=== PATIENT | male | born 1990 | race Caucasian/White ===

== ENCOUNTER 2018-01-24 18:25 | Observation (INO) | payer OTHER ==
--- NOTE | 2018-01-24 18:36 | EDPHY ---
H & P Smoking Status: Never smoked Time Seen by Provider: 01/24/18 18:34 HPI/ROS: CHIEF COMPLAINT: Right ankle injury HISTORY OF PRESENT ILLNESS: 27-year-old male presents to the emergency department by ambulance with right ankle injury. 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 He has an open wound that they were able to control the bleeding with firm direct pressure. The incident happened just prior to arrival. He had a protein shake 45 min ago. He denies hitting his head. Denies headache. Denies neck or back pain. Denies chest pain or difficulty breathing. Denies abdominal pain. REVIEW OF SYSTEMS: Constitutional: No fever, no chills. Eyes: No double or blurry vision. ENT: No sore throat. Respiratory: No cough, no shortness of breath. Cardiac: No chest pain. Gastrointestinal: No abdominal pain, vomiting or diarrhea. Genitourinary: No dysuria. Musculoskeletal: No neck or back pain. Skin: No rashes. Neurological: No headache. (Clara Rodriguez) Past Medical/Surgical History: History of pelvis fracture. 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 Eyes: Pupils equal and round. Extraocular motions are all intact. ENT: Mouth: Mucous membranes moist. Respiratory: No wheezing, rhonchi, or rales, lungs are clear to auscultation. Cardiovascular: Regular rate and rhythm. Gastrointestinal: Abdomen is soft and nontender, no masses, no rebound or guarding, bowel sounds normal. Neurological: Alert and oriented x 3, cranial nerves II through XII grossly intact Skin: Warm and dry, no rashes. Musculoskeletal: Nontender to palpate along the cervical, thoracic or lumbar spine. Neck is supple. Extremities: Examination the right ankle reveals puncture wound noted just distal to the lateral malleolus. There is very slow active bleeding noted. He has normal sensation to light touch with normal 2 point discrimination. Strong dorsalis pedis pulse on the dorsal aspect of his right foot. Limited range of motion of the right ankle secondary to pain. Nontender to palpate his right calf or right knee. Psychiatric: Patient is oriented X 3, there is no agitation. (Clara Rodriguez) Constitutional: Initial Vital Signs Temperature (C) 37.7 C 01/24/18 18:32 Heart Rate 74 01/24/18 18:32 Respiratory Rate 16 01/24/18 18:32 Blood Pressure 124/75 H 01/24/18 18:32 O2 Sat (%) 100 01/24/18 18:32 O2 Delivery Mode Room Air Allergies/Adverse Reactions: No Known Allergies Allergy (Unverified 07/25/10 13:58) Home Medications: Medication Instructions Recorded NO HOME MEDS 07/25/10 oxyCODONE/APAP [Percocet 1 - 2 tab PO Q4-6PRN PRN #20 tab 07/25/10 5325] Medical Decision Making - Diagnostics Imaging: Discussed imaging studies w/ call center coordinator Radiologist, I viewed and interpreted images myself - Diagnostics Imaging Results: Imaging Impressions Ankle X-Ray 01/24/18 18:39 Impression: 1. Widening of the lateral ankle mortise suspicious for ligamentous injury. 2. Air in the soft tissues and joint. Findings discussed with CLARA RODRIGUEZ 01/24/2018 at 18:56. Extremity CT 01/24/18 19:29 Impression: No fracture. Intra-articular and extensive subcutaneous gas. Results called and discussed with Clara Rodriguez, at 01/24/2018 19:52 ED Course/Re-evaluation: 27-year-old male presents to the emergency department with right ankle injury. On examination the patient has puncture wound noted to the lateral aspect of the right ankle with some slow active bleeding noted. No gross deformity noted to the ankle. X-rays reveal air in the joint, however no evidence of obvious fracture. The patient was given 1 g of Ancef IV in the emergency department. He was kept NPO. He had a protein shake 45 min prior to arrival. I initially spoke with Dr. Christopher Faust, on-call orthopedic surgeon, who recommended cleaning the area out, antibiotics, Medrano boot, and he would see him in follow-up. I spoke with Dr. Ro, secondary supervising physician, who also evaluated the patient and spoke with Dr. Christopher Faust about management of this patient. CT imaging was ordered which reveal no fractures. The patient will be taken to the operating room for washout. (RosClara tovar) Differential Diagnosis: Including but not limited to open fracture, ankle sprain, retained foreign body , dislocation, contusion (Clara Rodriguez) Other Provider: Independent physician evaluation: I evaluated and participated in the management of the patient. I also evaluated the patient independently. My co-signature indicates that I have reviewed this chart and I agree with the findings and plan of care as documented. My personal H&P findings include: The patient presents with complaints of right ankle pain following an inversion injury. The patient is noted to have a 3 cm laceration below his lateral malleolus. The patient is noted to have air in his ankle joint. Both x-ray and CT scan demonstrate no evidence of an obvious fracture. The patient had an IV established. He received a 1 gm of Ancef. He presents to the emergency department with a traumatic arthrotomy. I consulted with Dr. Faust from Orthopedic surgery who will take the patient to the operating room for a washout. (Jose Antonio Ro) - Data Points Medications Given: Discontinued Medications Bacitracin (Bacitracin Syringe) Confirm Administered Dose 50,000 units IRR .STK- MED ONE Stop: 01/24/18 21:57 Last Admin: 01/24/18 22:54 Dose: 50,000 units Bupivacaine HCl (Sensorcaine 0.5% Vial) Confirm Administered Dose 30 ml .ROUTE .STK-MED ONE Stop: 01/24/18 22:32 Last Admin: 01/24/18 22:54 Dose: 30 ml Hydromorphone HCl (Dilaudid) 1 mg IVP EDNOW ONE Stop: 01/24/18 19:46 Last Admin: 01/24/18 19:49 Dose: 1 mg Cefazolin Sodium/Dextrose (Ancef 1 Gm (Premix)) 50 mls @ 200 mls/hr IV EDNOW ONE PRN Reason: Protocol Stop: 01/24/18 18:47 Last Admin: 01/24/18 18:44 Dose: 50 mls Sodium Chloride (Ns) 1,000 mls @ 0 mls/hr IV ONCE ONE PRN Reason: Wide Open Stop: 01/24/18 18:42 Last Admin: 01/24/18 18:43 Dose: 1,000 mls Cefazolin Sodium/Dextrose (Ancef 1 Gm (Premix)) 50 mls @ 200 mls/hr IV ONCALL ONE PRN Reason: Protocol Stop: 01/24/18 21:51 Last Admin: 01/24/18 22:21 Dose: 50 mls Midazolam HCl (Versed) 2 mg IVP ONCALL ONE Stop: 01/24/18 22:02 Last Admin: 01/24/18 22:13 Dose: 2 mg Polymyxin B Sulfate (Polymyxin B Syringe) Confirm Administered Dose 500,000 unit IRR .STK-MED ONE Stop: 01/24/18 21:57 Last Admin: 01/24/18 22:53 Dose: 500,000 unit Departure - Departure Disposition: To OP Cath/Surgery Clinical Impression: Traumatic arthrotomy Open traumatic subluxation of ankle joint Qualifiers: Encounter type: initial encounter Laterality: right Qualified Code(s): S93.01XA - Subluxation of right ankle joint, initial encounter Condition: Fair
[2018-01-24] MEDS ORDERED: NS 1,000 ML IV ONE ×2 (18:41→21:25)
[2018-01-24] MEDS ORDERED: HYDROmorphONE/DILAUDID 2 MG/ML INJ IVP ONE (19:45)
[2018-01-24] MEDS ORDERED: HYDROmorphONE/DILAUDID 2 MG/ML INJ ONE (19:47)
--- NOTE | 2018-01-24 21:48 | GHP ---
[f rep st] PREOP HISTORY AND PHYSICAL DATE OF ADMISSION: 01/24/2018 REASON FOR CONSULTATION: Open ankle dislocation right. 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 Rubia hernandez was brought to the emergency department. X-rays and CT scan were obtained which did not show any a cute fracture. However there was air in the joint itself and he was given Ancef in the emergency dep artment and decision made to bring him up urgently to the operating room for formal open arthrotomy a nd I and D of the joint. PRIOR MEDICAL HISTORY: None. PRIOR SURGICAL HISTORY: None. MEDICATIONS: None. ALLERGIES: None. SOCIAL HISTORY: He [place] here [place] town. 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 He does not smoke. Does not drink alcohol. REVIEW OF SYSTEMS: No shortness of breath. No chest pain. Other than ankle pain, review of systems is normal. PHYSICAL EXAMINATION: VITAL SIGNS: In the emergency department blood pressure is 156/87, heart rate 89, respiratory rate is 16 on room air. His oxygen saturation is 98%. He weighs 83 kg. GENERAL: Alert and oriented x3. HEENT: Normocephalic, atraumatic. Extraocular muscles intact. NECK: Suppl e. There is no lymphadenopathy. No JVD. CHEST: Clear to auscultation. CARDIOVASCULAR: Regular r ate and rhythm. ABDOMEN: Soft, nontender, nondistended. EXTREMITIES: Focused on the right ankle rubia hernandez has a laceration over the lateral side of the joint with active slow ooze. No obvious contamination in the wound. He has 2+ dorsalis pedis and posterior tibial pulses. Calf is soft. He is moving hi s toes well. Sensation to light touch. Intact on the dorsal plantar aspect of his foot. IMAGING: Both plain x-rays and CT scan with 3D reconstructions are reviewed. I do not appreciate an y acute fractures. There is subcutaneous as well as air in the joint. ASSESSMENT: Open ankle dislocation right. PLAN: I want to or proceed with an urgent arthrotomy, irrigation debridement of his right ankle. Ri sks and benefits were discussed including potential septic arthritis down the road or residual infect ion. Most likely has a ligamentous injury as well that will need to be assessed at a later date. He signed the consent form. His questions were answered. /[id number]/MODL
[2018-01-24] MEDS ORDERED: BACITRACIN 50,000 UNITS/10 ML SYR IRR ONE (21:56)
[2018-01-24] MEDS ORDERED: POLYMYXIN B SULFATE 500,000 UNIT/10 ML SYR IRR ONE (21:56)
[2018-01-24] MEDS ORDERED: MIDAZOLAM 2 MG/2 ML VIAL IVP ONE (22:01)
--- NOTE | 2018-01-24 22:01 | PDANEPAE ---
ANE History of Present Illness traumatic R ankle injury, here for reduction, I+D ANE Past Medical History - Cardiovascular History Hx Hypertension: No Hx Arrhythmias: No Hx Chest Pain: No Hx Coronary Artery / Peripheral Vascular Disease: No - Pulmonary History Hx COPD: No Hx Asthma/Reactive Airway Disease: No Hx Recent Upper Respiratory Infection: No Hx Oxygen in Use at Home: No - Endocrine History Hx Diabetes: No ANE Review of Systems Review of Systems: - Exercise capacity Exercise capacity: >=4 METS ANE Patient History - Allergies Allergies/Adverse Reactions: No Known Allergies Allergy (Unverified 07/25/10 13:58) - Home Medications Home Medications: NO HOME MEDS 07/25/10 [Last Taken Unknown] - NPO status NPO Since - Liquids (Date): 01/24/18 NPO Since - Liquids (Time): 17:00 NPO Since - Solids (Date): 01/24/18 NPO Since - Solids (Time): 17:00 - Anes Hx Anes Hx: no prior problems - Smoking Hx Smoking Status: Never smoked - Alcohol Use Alcohol Use: Rarely - Family Anes Hx Family Anes Hx: none ANE Labs/Vital Signs - Vital Signs Blood Pressure: 156/87 Heart Rate: 89 Respiratory Rate: 16 O2 Sat (%): 98 Weight: 83.915 kg ANE Physical Exam - Airway Neck exam: FROM Mallampati Score: Class 1 Mouth exam: normal dental/mouth exam - Pulmonary Pulmonary: no respiratory distress, clear to auscultation - Cardiovascular Cardiovascular: regular rate and rhythym, no murmur, rub, or gallop - ASA Status ASA Status: I, E ANE Anesthesia Plan Anesthesia Plan: general endotracheal anesthesia
[2018-01-24] MEDS ORDERED: fentaNYL 100 MCG/2 ML INJ ONE (22:05)
[2018-01-24] MEDS ORDERED: PROPOFOL 200 MG/20 ML VIAL ONE ×2 (22:05)
[2018-01-24] MEDS ORDERED: MIDAZOLAM 2 MG/2 ML VIAL ONE (22:06)
[2018-01-24] MEDS ORDERED: BUPIVACAINE 0.5% 30 ML SDV ONE (22:31)
--- NOTE | 2018-01-24 23:01 | POSTANESTH ---
Post Anesthetic Evaluation Cardiovascular Status: Normal, Stable, Similar to Pre-Op Cond Respiratory Status: Normal, Stable, Similar to Pre-op Cond. Level of Consciousness/Mental Status: Can Participate in Eval, Alert and Oriented Pain Control: Adequate, Prn Tx Ordered Nausea/Vomiting Control: Adequate, Prn Tx Ordered Complications Possibly Related to Anesthesia: None Noted
[2018-01-24] MEDS ORDERED: ACETAMINOPHEN 500 MG TAB PO PRN (23:02)
[2018-01-24] MEDS ORDERED: ACETAMINOPHEN 325 MG TAB PO PRN (23:02)
[2018-01-24] MEDS ORDERED: PROMETHAZINE HCL 25 MG/ML INJ IVP PRN (23:02)
[2018-01-24] MEDS ORDERED: HYDROCODONE/APAP 5/325 TAB PO PRN ×2 (23:02)
[2018-01-24] MEDS ORDERED: HYDROmorphONE/DILAUDID 2 MG/ML INJ IVP PRN (23:02)
[2018-01-24] MEDS ORDERED: NALOXONE HCL 0.4 MG/ML INJ IVP PRN (23:02)
[2018-01-24] MEDS ORDERED: fentaNYL 100 MCG/2 ML INJ IVP PRN (23:02)
[2018-01-24] MEDS ORDERED: oxyCODONE IR 5 MG TAB PO PRN ×2 (23:02)
[2018-01-24] MEDS ORDERED: ONDANSETRON 4 MG/2 ML VIAL IVP PRN ×2 (23:02)
--- NOTE | 2018-01-24 23:09 | POSTOPPROG ---
Post Op Note Date of Operation: 01/24/18 Surgeon: Christopher Faust Anesthesiologist: Phoebe Anesthesia: GET(General Endotracheal) Pre-op Diagnosis: Open ankle dislocation Post-op Diagnosis: same Procedure: 1. I&D rt ankle 2. repair ankle ligaments Findings: complete tear ATFL/CF ligaments Inf/Abcess present in the surg proc area at time of surgery?: No EBL: Minimal Complications: none
[2018-01-24] MEDS ORDERED: NS 1,000 ML IV SCH (23:15)
--- NOTE | 2018-01-24 23:34 | GOP ---
[f rep st] OPERATIVE REPORT DATE OF OPERATION: 01/24/2018 SURGEON: Christopher Faust MD ANESTHESIA: General. ANESTHESIOLOGIST: Dr. Sandhu PREOPERATIVE DIAGNOSIS: Open ankle dislocation, right. POSTOPERATIVE DIAGNOSIS: Open ankle dislocation, right. PROCEDURE PERFORMED: 1. Irrigation and debridement, right ankle soft tissue, fascia, muscle, and joint. 2. Repair anterior talofibular and calcaneofibular ligaments. FINDINGS: ESTIMATED BLOOD LOSS: Minimal. 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 He was brought to the emergenc y department. X-rays and CT scan were obtained which were negative for fracture. He was brought urg ently to the operating room for formal irrigation and debridement of the wound since it was open, ext ended into the joint, as was evidenced by air on the x-ray and CT scan. DESCRIPTION OF PROCEDURE: After appropriate informed consent was obtained, patient was taken to the operating room, placed supine on the operating table. Timeout was performed. Patient was identified , correct site was identified. He [facility] a [facility] and then an additional gram at the time of surgery. Following the induction of general endo tracheal tube anesthesia, right ankle was prepped and draped in usual sterile fashion. Exsanguinated the limb, inflated the tourniquet to 250 mmHg I extended the puncture wound both proximally and distally, and a curvilinear incision around the dis frances end of the fibula. The ankle was grossly unstable. I was able the inspect the joint. There wer e no injuries to the cartilage, no free or loose bodies within the joint. There was no contamination within the joint. I then irrigated the wound with pulsatile lavage with polymyxin and bacitracin 3 L. Then, examining the joint both the anterior talofibular and calcaneofibular ligaments were comple tely ruptured. I was able to repair this back in a [id number] fashion using 0 Vicryl suture. I then closed the skin loosely with 3-0 nylon. I instilled 30 mL of 0.5% Marcaine plain around the in cision. Sterile dressing and a posterior splint with the foot in dorsiflexion and slight eversion wa s applied. The patient was awakened from anesthesia, taken to the recovery room in satisfactory condition. Ther e were no immediate intraoperative complications. COMPLICATIONS: None. DRAINS: None. TOTAL TOURNIQUET TIME: 21 minutes at 250 mmHg. COMPLICATIONS: None. /[id number]/MODL
[2018-01-25] MEDS: KETOROLAC 15 MG/1 ML SDV IVP SCH ×3 (00:29→13:32)
[2018-01-25] MEDS: ceFAZolin 2 GM/SWFI 2 GM/20 ML SYR IVP SCH ×2 (06:13→13:33)
[2018-01-25 08:05] VITALS: BP 127/69
--- NOTE | 2018-01-25 09:11 | SOAPPROG ---
SOAP Progress Note Assessment/Plan: Assessment: Plan: 01/25/18 09:10 S/P I&D open ankle dislocation DC home after antibiotics completed NWB RLE f/u [facility] 5-7 days Subjective: comfortable o/n Objective: splint in place brisk cap refill all toes moving toes Vital Signs Temp Pulse Resp BP Pulse Ox 37.0 C 81 16 127/69 H 98 01/25/18 08:00 01/25/18 08:00 01/25/18 08:00 01/25/18 08:00 01/25/18 08:00 01/24/18 01/25/18 01/26/18 05:59 05:59 05:59 Intake Total 1400 Output Total 2358 8446 Balance -775 -1152 ICD10 Worksheet Patient Problems: Problems Problem Status Onset Open traumatic subluxation of ankle joint Acute
--- NOTE | 2018-01-25 15:22 | ASMTCMCOM ---
CM Note CM Note Notes: Pt medically stable for d/c, no CM d/c needs identified. Date Signed: 01/25/2018 03:21 PM Electronically Signed By:TISH Goodwin
== END 2018-01-25 15:42 | disposition home or self-care (01) ==
LOC: EDUNIT# → FSGY 21:49 → F3N 23:02
PROVIDERS: ADMIT Orthopaedic Surgery; ATTEND Orthopaedic Surgery
PROC: 0JBQ0ZZ Excision of Right Foot Subcutaneous Tissue and Fascia, Open Approach (ICD-10-PCS; principal; 2018-01-24 21:45)
PROC: 0MQQ0ZZ Repair Right Ankle Bursa and Ligament, Open Approach (ICD-10-PCS; principal; 2018-01-24 21:45)
DX: S93.491A Sprain of other ligament of right ankle, initial encounter (principal); S91.031A Puncture wound without foreign body, right ankle, initial encounter; E86.9 Volume depletion, unspecified; X50.0XXA Overexertion from strenuous movement or load, initial encounter; Y99.0 Civilian activity done for income or pay; Y93.B9 Activity, other involving muscle strengthening exercises; Y92.39 Other specified sports and athletic area as the place of occurrence of the external cause
CPT/HCPCS: 11011; 27696; 73610; 73700; 96361; 96365; 96375; 96376; 97116; 97161; 99285; G0378; J0690; J1170; J1885; J2250; J2704; J3010